=== PATIENT | female | born 1955 | race Caucasian/White ===

== ENCOUNTER 2016-10-15 12:35 | Emergency (ER) | payer OTHER ==
[2016-10-15 12:48] VITALS: TEMP 98.4
--- NOTE | 2016-10-15 13:26 | EDPHY ---
H & P Stated Complaint: Vertigo this am that has resolved;now has nausea HPI/ROS: CHIEF COMPLAINT: Dizziness, nausea. HISTORY OF PRESENT ILLNESS: This patient is a pleasant 60 year old female complaining of an episode of dizziness and nausea onset this morning around 11:00, 2.5 hours ago. [place] and stopped in a parking lot to wait for their arrival. She was about to get out of her car, when she had sudden onset of a spinning sensation and became very warm and felt she was going to pass out. She became diaphoretic and nauseous. The spinning sensations lasted around 15 minutes, and then she was able to walk, but her nausea remains. She was able to drive her family from [facility] to her home in [place]. She visited urgent care, and was encouraged to seek treatment here at the Emergency Department. No confusion, difficulty with speech, new weakness , or new numbness. No chest pain, abdominal pain, shortness of breath, diarrhea , or urinary complaints. She states her ears have been plugging up over the last couple weeks, but she has successfully treated this with Claritin. She denies otalgia, hearing loss, fever, or headache. REVIEW OF SYSTEMS: A ten point review of systems was performed and is negative with the exception of the items mentioned in the HPI. - Personal History Current Tetanus Diphtheria and Acellular Pertussis (TDAP): Yes - Medical/Surgical History PMH: 1. Hypothyroid. 2. Depression. 3. Hyperlipidemia. Other PMH: thyroid. anxiety/depression - Social History Smoking Status: Never smoked Additional Social History: [id number] at bedside. Nonsmoker. Occasional alcohol use. - Physical Exam Exam: General Appearance: Alert. Vital signs reviewed. Blood pressure 145/89, heart rate 45. Eyes: No nystagmus. Pupils equal and round, no conjunctival injection, no discharge. Anicteric. ENT, Mouth: Mucous membranes are moist, no oropharyngeal erythema or edema. Neck: No carotid bruits. No lymphadenopathy, supple. Respiratory: Lungs are clear to auscultation; no wheezes, rales, or rhonchi. Cardiovascular: Regular rate and rhythm; no murmur, rub, or gallop. Gastrointestinal: Abdomen is soft and nontender, no masses or organomegaly, bowel sounds normal. Skin: Warm and dry, no rashes on exposed skin, normal color. Back: Nontender to palpation over the thoracolumbar spine. No CVAT. Extremities: No lower extremity edema, no calf tenderness or swelling. Neurological: Alert and oriented. Moving all four extremities easily and equally. Cranial nerves II through XII are examined and are intact (visual acuity not tested). Strength is 5 over 5 bilaterally with testing of all major motor groups. Sensation is intact to light touch over all 4 extremities. Deep tendon reflexes are 2+ in the biceps and knees bilaterally. [id number] is performed accurately. Psychiatric: Normal affect. Constitutional: Initial Vital Signs Temperature (C) 36.9 C 10/15/16 12:44 Heart Rate 70 10/15/16 12:44 Respiratory Rate 48 H 10/15/16 12:44 Blood Pressure 145/89 H 10/15/16 12:44 O2 Sat (%) 97 10/15/16 12:44 O2 Delivery Mode Room Air Allergies/Adverse Reactions: Penicillins Allergy (Intermediate, Verified 10/15/16 12:48) Hives Sulfa (Sulfonamide Antibiotics) Allergy (Intermediate, Verified 10/15/16 12:48) Hives Home Medications: Medication Instructions Recorded Citalopram Hydrobromide [celeXA 10 10 mg PO DAILY 10/15/16 MG] Levothyroxine [Synthroid 100 mcg 100 mcg PO DAILY06 10/15/16 (*)] Meclizine HCl [Antivert] 25 mg PO Q8 #10 tablet 10/15/16 clonAZEPAM [Klonopin] 0.25 mg PO 10/15/16 Medical Decision Making ED Course/Re-evaluation: 60 year old female presenting with an episode of dizziness and nausea around 11: 00, 2.5 hours ago, now resolved. She does have a family history of cardiac disease on her father's side, but none at an early age, and she has minimal personal risk factors. Her symptoms are a classic presentation of peripheral vertigo. Physical exam is unremarkable , and she is neurologically intact. No nystagmus, no continuing spinning sensations. No carotid bruit. I do not feel head imaging is warranted at this point given the patient's presentation and quick resolution of symptoms. The patient is comfortable with this. Plan to discharge home in good condition with prescription for Meclazine for symptom relief. I offered a dose of Zofran here to control nausea, but the patient is taking Citalopram so I will not discharge her with a prescription due to concern for potential QT prolongation. The patient declines Zofran in the emergency department (where she could be monitored). Follow up and return precautions discussed. The patient is comfortable with this plan. Differential Diagnosis: Vertigo including but not limited to peripheral causes such as benign positional vertigo, Meniere's disease, viral labyrinthitis and central causes such as CVA, and tumor. Departure - Departure Disposition: Home, Routine, Self-Care Clinical Impression: Vertigo Condition: Good Instructions: Vertigo (ED), Benign Paroxysmal Positional Vertigo (ED), Dizziness (ED) Additional Instructions: 1. Take Meclizine as directed on the packaging as needed for vertigo. We will give you a prescription today, but this medication is also available over the counter. 2. Follow up with your primary care provider for symptoms unresolved or recurrent episodes of vertigo. 3. Return to the Emergency Department if you develop intractable vertigo, earache, changes in your hearing, chest pain, shortness of breath, severe headache, or other worsening of condition. Referrals: Cori Toro MD [Primary Care Provider] - As per Instructions Prescriptions: Meclizine HCl [Antivert] 25 mg PO Q8 #10 tablet Report Scribed for: Tana Youssef Report Scribed by: Carmen Amaral Date of Report: 10/15/16 Time of Report: 13:43 Physician Review and Approval Statement: 10/15/16 13:26 Portions of this note were transcribed by the pediatric medical assistant. I, Dr. Tana Youssef, personally performed the history, physical exam, and medical decision- making; and confirmed the accuracy of the information in the transcribed note.
[2016-10-15] MEDS ORDERED: ONDANSETRON DISINTEGRATING 4 MG TAB ONE (13:56)
[2016-10-15 14:05] VITALS: BP 149/101; PULSE 76; RESP 16; O2SAT 95
== END 2016-10-15 14:00 | disposition home or self-care (01) ==
DX: R42 Dizziness and giddiness (principal)

== ENCOUNTER → 2016-10-26 | Outpatient (CLI) | payer OTHER | LOC: FIMAGING 07:52 | PROVIDERS: ATTEND Family Medicine | DX: Z12.31 Encounter for screening mammogram for malignant neoplasm of breast (principal) | CPT/HCPCS: G0202 ==

== ENCOUNTER → 2018-09-08 | Outpatient (CLI) | payer OTHER | LOC: GIMAGING 08:25 ==